=== PATIENT | female | born 1940 | race Caucasian/White ===

== ENCOUNTER 2016-12-20 16:56 | Inpatient (IN) | payer MEDICARE ==
[~2016-12-20] VITALS: Ht 154.9 cm; Wt 90.1 kg
--- NOTE | ~2016-12-20 | ECH ---
Transthoracic Echocardiography Report (TTE) Demographics Patient Name OLEG CHAPARRO Date of Study 12/21/2016 Patient Number [id number] Visit Number [id number] Date of 1940 Room Number 301 Accession Number [id number] Gender Female Age 76 year(s) Referring Svetlana Mojica MD Rd Scientist Lesly Shirley [facility] Physician Mingo Campbell Physician Interpreting Deandra Tavares MD Salesforce Business Analyst Physician Supervising Ordering Physician Svetlana Mojica MD, MD/P Nurse Stress Embedded Systems Engineer Conclusions Summary Technically fair exam. The estimated left ventricular ejection fraction is 60-65%. Patient tachycardia and tachypneic. Mild concentric left ventricular hypertrophy. Moderately reduced right ventricular function. Moderately dilated right ventricle. Normal right atrial size. There is trivial aortic regurgitation by color Doppler. Mild-moderate tricuspid regurgitation by color Doppler. There is moderate pulmonary hypertension. The pulmonary pressure (RVSP) is 53mmHg. Procedure Type of Study TTE procedure:Echo Complete SF. Procedure Date Date: 12/21/2016 Start: 07:41 AM Technical Quality: Adequate visualization Indications:Pulmonary embolus. Appropriate Use Criteria: 9 Height: 61 inches Weight: 205 pounds BSA: 1.91 m Rhythm: Sinus tachycardia HR: 112 bpm BP: 101/67 mmHg M-Mode/2D Measurements LV Diastolic Dimension: 2.47 cm LV Systolic Dimension: 1.91 cm LV Septum Diastolic: 1.26 cm LV PW Diastolic: 1.25 cm AO Root Dimension: 2.84 cm Cardiac Output: 2.82 l/min LA Dimension: 1.87 cm Cardiac Index: 1.48 l/min*m RV Diastolic Dimension: 4.4 cm LA volume index: 17 ml/m LVOT: 1.8 cm IVC Inspiration: 1.37 cm LVOT VTI: 9.89 cm RV Base: 4.56 cm LV Stroke volume: 25.15 ml RV Mid: 3.47 cm LV Stroke volume index: 13.17 ml/m RV Length: 6.36 cm TAPSE: 1 cm TDI-S': 0.9 cm/s Doppler Measurements AV Peak Velocity: 0.9 m/s MV Peak E-Wave: 1.26 m/s AV Peak Gradient: 3.24 mmHg MV Peak A-Wave: 0.61 m/s AV Mean Gradient: 1.64 mmHg MV E/A Ratio: 2.05 LVOT Peak Velocity: 0.73 m/s MV P1/2t: 34.4 msec AV Area (Continuity):2 cm MV Deceleration Time: 118.5 msec TR Velocity:3.48 m/s MV Area (PHT): 6.4 cm TR Gradient:48.53 mmHg PV Peak Velocity: 0.45 m/s Estimated RAP:5 mmHg PV Peak Gradient: 0.82 mmHg Estimated RVSP: 54 mmHg Estimated PASP: 53.53 mmHg RA Area: 17.92 cm Findings Left Ventricle The left ventricle is normal in size . Mild concentric left ventricular hypertrophy. Diastolic assessment reveals normal relaxation. Right Ventricle Mildly reduced right ventricular function. Mildly dilated right ventricle. Left Atrium Normal left atrial size. Right Atrium Normal right atrial size. Mitral Valve Normal mitral valve structure and function. Trivial mitral regurgitation by color Doppler. Aortic Valve The aortic valve is mildly sclerotic. There is trivial aortic regurgitation by color Doppler. Tricuspid Valve Normal appearing tricuspid valve. Mild-moderate tricuspid regurgitation by color Doppler. There is moderate pulmonary hypertension. The pulmonary pressure (RVSP) is 53mmHg. Pulmonic Valve Normal pulmonic valve structure and function. Trivial pulmonic valve regurgitation by color Doppler. Pericardial Effusion No evidence of pericardial effusion. Miscellaneous Visualized portions of the aortic root and ascending aorta appear normal in size. Pleural Effusion No evidence of pleural effusion. Contractility Score LV regional wall motion:(0-Non visualized 1-Normal 2-Hypokinesis 3-Akinesis 4-Dyskinesis 5-Aneurysm) Signature
--- NOTE | 2016-12-21 18:15 | CO ---
ADMIT: 12/20/2016 RM/LOC: 301 [facility] MR#: [id number] [address] [address] OLEG CHAPARRO [address] [place] [address] Consultation SEX: F AGE: 76 : 1940 DATE OF CONSULTATION: 12/20/2016 ATTENDING PHYSICIAN: Carloz Mota CONSULTING PHYSICIAN: Dante Roberts MD REASON FOR CONSULTATION: Pulmonary embolism. HISTORY OF PRESENT ILLNESS: A 76-year-old female with an underlying history of endometrial cancer. She has had a hysterectomy in June and then had stage III disease and has been receiving chemotherapy. The last chemotherapy was very challenging for her, and she has been very immobile, stating she only gets up to go to the bathroom at home over the last week or so. She has developed some increased shortness of breath, and this has been present for 2 to 3 weeks. She even describes a little bit of pleuritic pain a couple of weeks ago. Today, it seemed to get worse and she was brought to the emergency room. Apparently, she had a fall and struck her head prior to getting into the emergency room. She may have lost consciousness transiently. She was hypotensive in the ER with blood pressures in the 50s. She underwent a CT scan of her chest which was positive for pulmonary embolism. She has been admitted to the intensive care unit and placed on heparin therapy. Blood pressure has been marginal, and she is requiring low-dose Levophed currently. She does feel better and her oxygen requirements are only about 2 L and saturations are in the 100% range. She is currently awake and alert. She has not had any hemoptysis. She has not had any further pleuritic chest pain. She does have an underlying history of hypertension and is on lisinopril, Maxzide, and Norvasc. She just states that history of endometrial cancer as above and has received chemotherapy as of November 23. Apparently, radiation therapy is pending. She has not had any abnormal bleeding. She has been very weakened by the overall chemotherapy. PAST MEDICAL HISTORY: 1. Endometrial cancer, stage III as above status post hysterectomy and recently receiving chemotherapy, last dated November 23. 2. Hypertension. MEDICATIONS: Currently include: 1. D5 normal saline along with heparin. 2. Levophed. 3. Rocephin. ALLERGIES: NONE. SOCIAL HISTORY: She lives in [place]. She has never smoked. She is . FAMILY HISTORY: Father had heart disease. Mother had diabetes. REVIEW OF SYSTEMS: GENERAL: No overt fevers. ADMIT: 12/20/2016 RM/LOC: 301 [facility] MR#: [id number] [address] [place] [id number] OLEG CHAPARRO [address] [place] [address] Consultation SEX: F AGE: 76 : 1940 SKIN: No new rash. HEAD AND NECK: No witnessed swallowing or aspiration event. EYES: No visual problems. RESPIRATORY: Listed above. CARDIAC: No anginal symptoms. Rhythm has been stable. GI: No nausea, vomiting, hematemesis, or melena. : No dysuria, frequency, or hematuria. MUSCULOSKELETAL: No new arthritis or arthralgias. NEUROLOGIC: No new focal complaints. PHYSICAL EXAMINATION: VITAL SIGNS: Listed on the chart and are reviewed. GENERAL: Pleasant female, awake and cooperative. SKIN: Warm and dry. No rash. HEAD AND NECK: Reveals some diffuse alopecia. Oropharynx is clear. Neck is supple. LUNGS: Clear to auscultation. I do not hear any wheezing. Respirations are unlabored. HEART: Regular rate and rhythm. ABDOMEN: Soft, nontender. EXTREMITIES: Revealed no clubbing or cyanosis. She has a trace of edema. NEUROLOGIC: Intact without deficits. LAB AND DIAGNOSTIC DATA: CT scan reveals fairly extensive bilateral pulmonary embolism. White count 13.8, hemoglobin 9.5, platelet count 341,000. BNP 2625. Lactic acid 5.6, calcium 11.2, BUN 39, creatinine 2.1. Arterial blood gas; pH 7.40, pCO2 of 29. PO2 of 78 on oxygen supplementation. ASSESSMENT: 1. Acute pulmonary embolism. 2. Hypotension. 3. Acute kidney injury. 4. Endometrial cancer stage III with anemia. 5. Hypercalcemia. 6. Recent fall, with contusion to her head. PLAN: She has been significantly immobile recently due to weakness related to her chemotherapy and I suspect that it is a large contributing factor to her development of thromboembolic event. Obviously, her underlying malignancy is also noted and calcium of 11.2 is somewhat concerning. The pulmonary embolism is large, and certainly brings rise to a consideration of her thrombolysis. However, I am somewhat reluctant to give thrombolysis. I do tend to be a bit conservative in this regard. She is 76 years old, has an underlying malignancy, and has a head contusion and has underlying hypertension. Considering the fact that her oxygen requirements have substantially stabilized, and she is only on oxygen of 2 L, and is very comfortable, currently I would prefer to hold on thrombolysis and treat her with conventional anticoagulation for now. I agree with heparin, especially in ADMIT: 12/20/2016 RM/LOC: 301 [facility] MR#: [id number] [address] [place] [id number] OLEG CHAPARRO [address] [place] [address] Consultation SEX: F AGE: 76 : 1940 case we elect to proceed with thrombolysis. Certainly, should she deteriorate, I would recommend pursuing thrombolysis. We will check an echocardiogram to evaluate pulmonary pressures. This will likely need to be followed up after she has been on therapy. I suspect with her underlying malignancy, she will require long-term anticoagulation. I am going to add Protonix for ulcer prophylaxis considering her current circumstance. She will be observed in the intensive care unit. I discussed this with the nurse and daughter. Further workup and therapeutic nursing depending on her course. Thank you for allowing me to participate in the care of this patient as always, if you have any questions, please feel free to contact me. This represents 50 minutes of critical care time spent directly with this patient not including procedures. Dante Roberts MD/ logan JOB #: [id number] CC: Carloz Mota, Attending Physician Carloz Mota, Family Physician MD Janine Combs MD
--- NOTE | 2016-12-25 07:43 | HP ---
ADMIT: 12/20/2016 RM/LOC: 301 [facility] MR#: [id number] [address] [address] FLACA CHAPARRO [address] [address] [place] [address] History and Physical SEX: F AGE: 76 : 1940 DATE OF SERVICE: CHIEF COMPLAINT: Shortness of breath and syncope. HISTORY OF PRESENT ILLNESS: Flaca is a 76-year-old female, well known to me. She recently was diagnosed unfortunately with endometrial cancer this last fall. She underwent hysterectomy in [place] on July 10, 2016. She has been under Dr. Aguila's care since then receiving chemotherapy. She finished the chemotherapy last week and was scheduled to start radiation therapy this next week. Flaca states the last 2-3 weeks, she has been feeling increasing shortness of breath, dyspnea on exertion. She got to the point where she cannot walk 25 to 30-feet without running out of air. She thought it was just due to the chemotherapy. She denies any fever or cough. She actually denies any chest pain. In the last couple of days, it has gotten worse. Today, her shortness of breath was so severe, family came to pick her up and bring her to the emergency room. When she got up to walk to the car, she fainted, blacked out, lost consciousness before she hit her head. On the way down, she hit her head on the steel door. Her daughter was present there and said she was unconscious for a couple of minutes, and when she first started to come to, she was confused and did not know what was going on. She also felt nauseated, thought she is going to vomit, but she did not vomit. They brought her into the emergency room, where a CT scan of the head was negative for any intracranial injury or bleed. She does have occipital bruising. CTA of the lungs did show bilateral large pulmonary emboli both central and peripheral. Flaca denies any leg pain, calf pain, or swelling in the legs. Again, she denies any chest pain or pleuritic pain. Initially, in the emergency room, her blood pressure was low at 55/30. With fluid bolus, this was brought up to 80/50, and she is being transferred to ICU as soon as the bed is available and she has been started on heparin protocol for pulmonary emboli. I did discuss with her and her children, who were present that she is at risk for intracranial hemorrhage because of the head injury; however, with a large pulmonary emboli, we do not have any choice, but to anticoagulate her. ALLERGIES: NONE. MEDICATIONS: 1. Amlodipine 5 mg daily. 2. Lisinopril 10 mg daily. 3. Dyazide 1 daily. 4. Compazine p.r.n. for nausea. PAST MEDICAL HISTORY: The only operation she had in her life was the hysterectomy that was this past July for the endometrial cancer. She was hospitalized x4 for child . No other hospitalizations. No other operations. ADMIT: 12/20/2016 RM/LOC: 301 [facility] MR#: [id number] [address] [place] [phone] FLACA CHAPARRO [address] [address] [place] [address] History and Physical SEX: F AGE: 76 : 1940 SOCIAL HISTORY: . Does not use tobacco or alcohol. FAMILY HISTORY: Father of heart complications after coronary bypass surgery at age 75. Mother at age 93. She had diabetes mellitus type 2. REVIEW OF SYSTEMS: GENERAL: Flaca is doing well until the diagnosis of the endometrial cancer. Since the surgery, she has been getting chemo, which she has had the chemotherapy side effects with nausea, hair loss, and just generalized fatigue. HEENT: Denies any other syncopal episodes other than the one that occurred tonight. No headache, blurry vision, or double vision. PULMONARY: Dyspnea on exertion, shortness of breath over the last 2-3 weeks, but prior to this no problems. CARDIAC: History of hypertension. She is on treatment for this. GI: Negative. : Negative. MUSCULOSKELETAL: Osteoarthritis, otherwise denies any complaints. Rest of the review of systems negative. PHYSICAL EXAM: GENERAL: A 76-year-old female, she is alert and cooperative. She is oriented x3. SKIN: Somewhat cool and moist. VITAL SIGNS: BP as mentioned is 80/50. Temp is 98.2, heart rate is 110, respiratory rate is 31, O2 saturation is 94% with oxygen. HEENT: Eyes PERRLA. EOMs intact. TMs not seen. Throat is moist, not inflamed. Head is normocephalic. There is a small bruise, very small cephalhematoma over the occipital area. Most of her hair has come out due to the chemo. NECK: Supple. LUNGS: Showed decreased breath sounds at bases. No rales, rhonchi, or wheezes. No respiratory distress at this time. HEART: Regular rate. No murmur. BREASTS: Not examined. ABDOMEN: Soft. No organomegaly or tenderness. : Rectal deferred. EXTREMITIES: No clubbing, cyanosis, or edema. Calves nontender. Diandra's sign is negative. LABORATORY DATA: Hemoglobin 9.5, white count of 13.8, blood sugar was 280. Creatinine is 2.1. BUN is 39. CPK is 79, MB fraction is elevated at 5. Index is elevated at 6.3. Troponin I is elevated at 0.18. ProBNP is elevated ADMIT: 12/20/2016 RM/LOC: 301 [facility] MR#: [id number] [address] [place] [phone] FLACA CHAPARRO [address] [place] [address] History and Physical SEX: F AGE: 76 : 1940 at 2625. Lactic acid is elevated at 5.6. IMPRESSION: 1. Bilateral large pulmonary emboli. 2. History of hypertension, currently hypotensive. 3. Endometrial cancer, status post hysterectomy. 4. Anemia. 5. Acute renal insufficiency. PLAN: She has been given fluids to raise her blood pressure. If it does not come up, she will need IV vasopressors. She will be started on heparin protocol, transferred to ICU for critical care consult. Carloz Mota MD/ logan JOB #: [id number] CC: Carloz Mota, Attending Physician Carloz Mota, Family Physician
--- NOTE | 2016-12-27 01:20 | ER ---
ADMIT: 12/20/2016 RM/LOC: 301 [facility] MR#: [id number] [address] [address] OLEG CHAPARRO [address] [place] [address] Emergency Room Report SEX: F AGE: 76 : 1940 DATE: 12/20/2016 ADDENDUM: CHIEF COMPLAINT: Short of breath and syncopal episode. HISTORY OF PRESENT ILLNESS: The patient is a 76-year-old female, who was diagnosed of endometrial cancer, was diagnosed approximately six months ago. She has had six rounds of chemotherapy since then. Her most recent was about four weeks ago. She states that over the past several weeks, she has had significantly worsening shortness of breath to the point where she called her family members today to come by, so she go get checked out. Her family members were helping her to get to the vehicle. She felt like she was going to go down and it sounds like she actually did have a syncopal episode, fell to the ground and bumped her head on the ground. It sounds like she was out for few seconds, but did not have any seizure activity. From their description, it sounds like the patient had syncopal episode that was initiated when she was standing and was already likely going to pass out and happened to hit her head. Does not sound like she passed out because she struck her head on the ground. She denies any chest pain, but does state that she has very severe dyspnea on any exertion, and even has shortness of breath at baseline. She denies any chest pain. Does not report having any fevers or chills. Denies any change in bowel or bladder function. REVIEW OF SYSTEMS: Ten-point review of systems is done and otherwise negative except as in HPI. PAST MEDICAL HISTORY: Significant for: 1. Endometrial cancer. 2. Hypertension. 3. Hyperlipidemia. PAST SURGICAL HISTORY: She has had hysterectomy, and she has a port on the left side of her chest. MEDICATIONS: See nurse's note. ALLERGIES: NONE. SOCIAL HISTORY: Denies smoking, drug, or alcohol use. PHYSICAL EXAMINATION: GENERAL: The patient is alert and oriented. HEAD: Shows she does have an area on her occiput consistent with cephalhematoma with some ecchymosis and mild swelling. There is no depression of the skull. Pupils are equal, round, and reactive to light. Extraocular muscles are intact. NECK: Supple. Airway is patent. There is no stridor. HEART: Tachycardic. LUNGS: Show that she does have some rhonchi and decreased breath sounds in ADMIT: 12/20/2016 RM/LOC: 301 [facility] MR#: [id number] [address] [address] OLEG CHAPARRO [address] [place] [address] Emergency Room Report SEX: F AGE: 76 : 1940 bilateral bases. ABDOMEN: Soft. The patient's port shows no signs of infection. SKIN: Warm and dry. She has equal pulses in all 4 extremities. Sensation and motor grossly intact. IMAGING: CT head shows nothing acute. CT chest shows a large bilateral PEs, and possibly some early infarct. LABORATORY DATA: White count is 13.8, hemoglobin is 9.5, platelets 341. Lactic acid 5.6. Chemistries are significant for CO2 of 21, BUN of 39, glucose of 280, creatinine of 2.1, calcium is elevated at 11.2, BNP is 2625, CK 79, troponin 0.180. INR 1.29. EKG shows sinus tachycardia, rate of 109, no ST elevation or signs of acute MD. ED COURSE: The patient presented, she was significant hypotension, blood pressure in the 50s over 30s. We accessed her port and began giving her fluid resuscitation. We did our sepsis routine, and head CT and chest CT. Head CT showed no acute findings, but the CT angio of her chest was significant for large bilateral PEs. I contacted Dr. Mota, who is her primary care physician will be admitting the patient to the ICU for her PE since starting her on heparin in the Emergency Department. We did do fluid resuscitation, and she has had some improvement in her blood pressures, but is still hypotensive. The patient is admitted to the ICU in critical condition. IMPRESSION: 1. Bilateral PEs, large. 2. Shortness of breath. 3. Hypotension. 4. Hypercalcemia. 5. Endometrial cancer. One hour of critical care time was spent on this patient. Carlton Rios MD/ logan JOB #: [id number] CC: Carloz Mota MD, Attending Physician Carloz Mota MD, Family Physician
--- NOTE | 2016-12-28 10:58 | CO ---
ADMIT: 12/20/2016 RM/LOC: 419 [facility] MR#: [id number] [address] [address] OLEG CHAPARRO [address] [place] [address] Consultation SEX: F AGE: 76 : 1940 DATE OF CONSULTATION: 12/25/2016 ATTENDING PHYSICIAN: Carloz Mota CONSULTING PHYSICIAN: Javier Oneal MD HISTORY OF PRESENT ILLNESS: I saw this 76-year-old lady in the hospital today. She was primarily admitted to the hospital because of shortness of breath and syncope and was eventually found to have pulmonary embolism and is on treatment for that. However, prior to coming to the hospital, she had fallen. She fell a week Wednesday, and consequent to that fall, she has been complaining of back pain. As a result of the fall, she had a transient loss of consciousness and investigations carried out included a CT scan of the brain which did not show any space-occupying lesion or any significant intracranial hemorrhage. She also had of course CT scan of the chest and had a PE workup. When she continued to complain of neck pain, she then went on to have a CT scan of the cervical spine, and the CT scan of the cervical spine showed a type 2 odontoid fracture. She was promptly put in an Lytton collar and of course immobilized that way. The odontoid fracture was nondisplaced. She denies any weakness in the upper or lower extremities. She has noticed some weakness in the hand and numbness which started after her fourth round of chemotherapy. She is on chemotherapy because of endometrial cancer. But other investigations was the ultrasound of the lower limb and it showed a DVT in the left leg extending beyond the knee. PAST MEDICAL HISTORY: She had a hysterectomy because of endometrial cancer, and she has had four childbirths and has not had any other medical problems since then. SOCIAL HISTORY: She is . Does not drink alcohol nor does she use tobacco. ALLERGIES: NO KNOWN ALLERGIES TO MEDICATION. MEDICATIONS: See the list in the admitting note. FAMILY HISTORY: Mother was diabetic, type 2 diabetes, and father had coronary artery disease. REVIEW OF SYSTEMS: She denies any headache. No nausea, no vomiting presently. She did not have any complaints with regard to her neck primarily because she was on the cervical collar and had taken something for pain just before I arrived. She denies any double vision. There is no blurring of vision. She was not having difficulty breathing. No chest pain. No abdominal pain. Had some hair loss secondary to chemotherapy. PHYSICAL EXAMINATION: GENERAL: In the hospital, she is a 76-year-old lady. She is awake. She is alert. Answered questions appropriately. VITAL SIGNS: Blood pressure was 129/73. The pulse was 99, was regular. ADMIT: 12/20/2016 RM/LOC: 419 [facility] MR#: [id number] [address] [address] OLEG CHAPARRO [address] [place] [address] Consultation SEX: F AGE: 76 : 1940 Respirations are 16. Temperature is 97.9. O2 sats 96% on room air. Laney coma score was 15. HEENT: Shows normocephalic. NECK: Neck was in an Lytton collar. I adjusted the cervical collar. CHEST: Clear. HEART: Rate was regular. NEUROLOGICAL: Her cranial nerve exam was normal. Motor examination was normal. Sensory exam was normal. Reflexes were normal in the upper extremities. Knee and ankle jerks were absent bilaterally. The toes were downgoing. IMPRESSION: 1. Cerebral concussion. 2. Type 2 odontoid fracture, nondisplaced. 3. Status pulmonary embolism secondary to DVT in the left lower extremity. SUGGESTION: My recommendation is that she should continue with the cervical collar. She should wear the collar all the time, 24 hours a day, and I will follow her in the hospital. As I had told her and her daughter, she will have to wear the collar for three months. In the meantime, during that period, Dr. Tayo Lopez would follow her in his clinic. Javier Oneal MD/ logan JOB #: [id number] CC: Carloz Mota, Attending Physician Carloz Mota, Family Physician
[2016-12-30] MEDS ORDERED: COLACE-DPS100 MG PO (15:44)
[2016-12-30] MEDS ORDERED: PROTONIX40 MG PO (15:44)
[2016-12-30] MEDS ORDERED: REMERON DPS15 MG PO (15:44)
[2016-12-30] MEDS ORDERED: COUMADIN5 MG PO (15:44)
[2016-12-30] MEDS ORDERED: MIRALAX PACKET17 GM PO (15:44)
[2016-12-30] MEDS ORDERED: COMPAZINE10 MG PO (15:45)
[2016-12-30] MEDS ORDERED: TYLENOL DPS325 MG PO (15:45)
[2016-12-30] MEDS ORDERED: PERCOCET 5-3251 EACH PO (15:45)
[2016-12-30] MEDS ORDERED: MAALOX DPS30 ML PO (15:45)
[2016-12-30] MEDS ORDERED: ULTRAM DPS50 MG PO (15:46)
[2016-12-30] MEDS ORDERED: NITROSTAT0.4 MG SL (15:46)
[2016-12-30] MEDS ORDERED: XANAX DPS0.25 MG PO (15:46)
[2016-12-30] MEDS ORDERED: FEOSOL-DPS325 MG PO (15:47)
[2016-12-30] MEDS ORDERED: CALCIUM500 MG PO (15:47)
--- NOTE | 2017-01-12 06:24 | DS ---
ADMIT: 12/20/2016 RM/LOC: [facility] MR#: [id number] [address] [id number] [place] [address] General Discharge Summary SEX: F AGE: 76 : 1940 ADMISSION DATE: 12/20/2016 DISCHARGE DATE: 12/29/2016 ADMITTING DIAGNOSIS: Syncope. DISMISSAL DIAGNOSES: 1. Acute pulmonary embolus. 2. Syncopal episode. 3. Nondisplaced type 2 dens fracture. 4. Acute renal insufficiency. 5. Anemia of chronic disease. 6. Hypertension. 7. Deep venous thrombosis of the left lower extremity. 8. Head injury concussion. 9. Endometrial carcinoma. 10.Hypercalcemia. 11.Hyperlipidemia. CHIEF COMPLAINT/HISTORY OF PRESENT ILLNESS: A 76-year-old female, recently diagnosed with endometrial cancer. She underwent a hysterectomy in [place] on July 10, 2016. She has been under Dr. Aguila's care since then receiving chemotherapy. She finished her chemotherapy last week and was scheduled to start radiation therapy this week. Last 2 to 3 weeks, she has been feeling increasing shortness of breath, dyspnea on exertion, got to the point where she could not walk 25 to 30 feet without running out of air. She thought it was due to her chemotherapy. She denies any fever or cough. She actually denies any chest pain. Last couple days, the shortness of breath had gotten worse, today are so severe that her family came to pick her up and bring her to the emergency room. When they got her up to walk to the car, she fainted, blacked out, lost consciousness, and hit her head. On the way down, she hit her head on a steel door. The daughter was present said there was unconsciousness for approximately 2 minutes. When she first started to come true, she is confused, did not know what was going on. She also felt nausea thought she is going to vomit, but did not vomit. They brought her in to the emergency room where a CT scan of the head was negative for intracranial injury or bleed. She did have some occipital bruising. CTA of the lungs showed large bilateral pulmonary emboli both central and peripheral. She specifically denies any chest pain, any leg swelling, or calf pain. Initially, in the emergency room, blood pressure was low at 55/30 with fluid bolus that came up to 80/50, and she was transferred to ICU to be started on heparin protocol and vasopressors. Family was aware that she was at high risk for intracranial bleed with a head injury but with the large pulmonary emboli and necessitated anticoagulant therapy. CONSULTANTS: Dante Roberts MD and Javier Oneal MD LABORATORY REPORTS: Prior to dismissal; hemoglobin was 7.9, white count 7.6, hemoglobin on admission was around 9.5, it dropped to 6.5 with fluids. She was transfused to bring it back up. INR prior to dismissal was 2.58. ADMIT: 12/20/2016 RM/LOC: [facility] MR#: [id number] [address] [place] [id number] [place] [address] General Discharge Summary SEX: F AGE: 76 : 1940 Electrolytes; sodium 141, potassium 4.1, chloride 110, CO2 of 23, BUN 11, creatinine 0.7, and glucose 78. Calcium uncorrected was 6.4, corrected was 7.9. Procalcitonin on admission was 0.16. Lactic acid on admission was 2.9. Calcium on admission uncorrected was 11.2. Creatinine on admission was 2.1. Magnesium on admission was 1.2. ProBNP on admission was 2625. Procalcitonin initially was 0.07. Lactic acid on admission was 5.6. ABGs on admission showed a pH of 7.404, pCO2 of 28.9, PO2 of 77.9. Hemoglobin A1c was borderline at 6.1. Blood cultures x2 were negative. CT of the chest showed large bilateral pulmonary emboli, cholelithiasis, and probable pulmonary infarcts. CT of the head showed age-related changes, no acute intracranial findings. CT of the neck showed a nondisplaced fracture at the base of the dens with normal alignment, degenerative changes throughout the cervical spine. Repeat CT of the cervical spine on December 29 showed no significant interval change in the alignment and position of the fracture of the dens. X- ray of the left hip did not show any fracture. C-spine film showed degenerative changes, no evidence of any fracture; therefore, the CT was ordered. Ultrasound showed deep venous thrombosis of the popliteal vein throughout the posterior tibial vein on the left leg. Echocardiogram showed ejection fraction of 60% to 65%, pulmonary pressure was elevated at 53, trivial aortic regurgitation, mild concentric left ventricular hypertrophy. EKG showed sinus tachycardia with nonspecific ST-T changes, low voltage. Serial EKG showed no changes. COURSE IN THE HOSPITAL: [place] was admitted to intensive care. Intensive Care consult was obtained. Cultures were obtained. She was started on IV Rocephin and Zofran for nausea. She was placed on heparin protocol for DVT pulmonary embolus. She was placed on IV Levophed to maintain blood pressure. She was gradually weaned off that after fluid resuscitation. Neurosurgery consult was obtained because of the head injury and need for blood thinners. Oncology also was consulted. She was transfused with unit of blood due to the anemia. She still was very anemic and was given a second unit. Critical care placed on Megace 160 mg p.o. t.i.d. while she was on heparin. She did require some IV Lasix as she did develop a little bit of fluid overload. Because of her ongoing neck pain, CT of the neck was ordered that showed a nondisplaced dens fracture. Neurosurgery was consulted for that. She was placed in a neck immobilizer. She had no neurological symptoms, did not require any surgery. She was transitioned from heparin to Coumadin. It was felt that she is probably hypercoagulable due to her endometrial carcinoma, would need to be maintained on Coumadin. Once her INR is therapeutic, the heparin infusion was discontinued. Physical therapy was started. She was too weak to go home and [employer] were consulted for placement. Bed was found at [facility] and she was dismissed to [facility] for ongoing PT/OT with hopes to eventual dismissal back to her home. MEDICATIONS: At time of transfer were: 1. Coumadin 5 mg daily. 2. MiraLax 17 g p.o. daily. 3. Protonix 40 mg daily. ADMIT: 12/20/2016 RM/LOC: [facility] MR#: [id number] [address] [id number] [place] [address] General Discharge Summary SEX: F AGE: 76 : 1940 4. Remeron 15 mg at bedtime. 5. Colace 100 mg p.o. b.i.d. 6. Compazine p.r.n. for nausea. 7. Lortab 5/325 one every 4 hours p.r.n. for pain. 8. Maalox p.r.n. 9. Tylenol p.r.n. 10.Ultram 50 mg q.4 hours p.r.n. for pain. 11.Xanax 0.25 mg 1/2 tablet every 8 hours p.r.n. for anxiety. Her blood pressure medicines were still on hold as she was normotensive at time of dismissal. She also sent on calcium 500 mg b.i.d. and iron 325 mg daily. She is to have a CBC, BMP, INR on January 01 and INR every week x4. She will be seen back in the office in 1 to 2 weeks. She is to have PT and OT. She was a full code at time of transfer. Carloz Mota MD/ logan JOB #: [id number] CC: Carloz Mota MD, Attending Physician Carloz Mota MD, Family Physician
[2017-04-20] MEDS ORDERED: MAG-OX400 MG PO (10:22)
[2017-04-20] MEDS ORDERED: SENOKOT-S TABL1 EACH PO (10:23)
[2017-04-20] MEDS ORDERED: MILK OF MAGNESI10 ML PO (10:23)
[2017-04-20] MEDS ORDERED: FLU VACCINE IM (10:23)
[2017-04-20] MEDS ORDERED: DULCOLAX-DPS10 MG PR (10:24)
[2017-04-20] MEDS ORDERED: BACITRACIN1 EACH TP (10:25)
[2017-04-20] MEDS ORDERED: VALIUM5 MG PO (10:26)
[2017-04-20] MEDS ORDERED: MICRO-K DPS10 MEQ PO (10:27)
[2017-04-20] MEDS ORDERED: TRIAMTERENE-HC1 EAC3 PO (10:28)
[2017-04-30] MEDS ORDERED: TRIAMTERENE-HC1 EAC3 PO (16:55)
[2017-04-30] MEDS ORDERED: POTASSIUM CHLO20 ME2 PO (16:55)
[2017-04-30] MEDS ORDERED: COUMADIN5 MG PO (16:55)
[2017-04-30] MEDS ORDERED: OYSTER SHELL C500 MG PO (16:56)
[2017-04-30] MEDS ORDERED: NITROSTAT0.4 MG SL (16:56)
[2017-04-30] MEDS ORDERED: MAG6464 MG PO (16:57)
[2017-04-30] MEDS ORDERED: VITAMIN B-12500 MCG PO (16:57)
[2017-04-30] MEDS ORDERED: VITAMIN D1000 UNI1 PO (16:58)
[2017-04-30] MEDS ORDERED: ULTRAM DPS50 MG PO (16:58)
[2017-04-30] MEDS ORDERED: TYLENOL DPS325 MG PO (16:58)
== END 2016-12-29 15:00 | DRG 175 ==
LOC: ER 16:56 → 3ICU 18:30 → 4PCU 18:30 → 3ICU 12-23 16:47 → 4PCU 12-23 17:37
PROVIDERS: ADMIT Family Medicine
PROC: 30233N1 Transfusion of Nonautologous Red Blood Cells into Peripheral Vein, Percutaneous Approach (ICD-10-PCS; principal; 2016-12-22)
DX: I26.99 Other pulmonary embolism without acute cor pulmonale (principal); R57.8 Other shock; S12.112A Nondisplaced Type II dens fracture, initial encounter for closed fracture; N17.9 Acute kidney failure, unspecified; I82.432 Acute embolism and thrombosis of left popliteal vein; S06.0X1A Concussion with loss of consciousness of 30 minutes or less, initial encounter; D63.0 Anemia in neoplastic disease; I10 Essential (primary) hypertension; I82.442 Acute embolism and thrombosis of left tibial vein; S13.9XXA Sprain of joints and ligaments of unspecified parts of neck, initial encounter; S00.93XA Contusion of unspecified part of head, initial encounter; W18.30XA Fall on same level, unspecified, initial encounter; C54.1 Malignant neoplasm of endometrium; E83.52 Hypercalcemia; E78.5 Hyperlipidemia, unspecified; Z82.49 Family history of ischemic heart disease and other diseases of the circulatory system